=== PATIENT | female | born 1990 | race Caucasian/White ===

== ENCOUNTER 2017-07-13 09:00 | Inpatient (IN) | payer OTHER ==
[~2017-07-13] VITALS: Ht 157.5 cm; Wt 102.0 kg
[~2017-07-13 09:00] MED LIST: IBUP-1542 PO
[2017-07-13] MEDS ORDERED: LACTATED RINGER'S 1,000 ML IV PRN ×2 (09:50→10:30)
[2017-07-13] MEDS ORDERED: PNV11TAB PO (10:14)
[2017-07-13 10:15] VITALS: BP 118/57; PULSE 71; RESP 18; Ht 157.5 cm; Wt 102.0 kg
[2017-07-13] MEDS ORDERED: CARBOPROST 250 MCG INJ IM PRN ×2 (10:30→11:00)
[2017-07-13] MEDS ORDERED: MISOPROSTOL 200 MCG TAB PR PRN ×2 (10:30→11:00)
[2017-07-13] MEDS ORDERED: METHYLERGONOVINE 0.2 MG INJ IM PRN ×2 (10:30→11:00)
[2017-07-13] MEDS ORDERED: LIDOCAINE 1% (MPF) 30 ML INJ INJ PRN ×2 (10:30→11:00)
[2017-07-13] MEDS ORDERED: OXYTOCIN 30 UNITS/LR 500 ML IV PRN ×2 (10:30→11:00)
[2017-07-13] MEDS ORDERED: OXYTOCIN 30 UNITS/LR 500 ML IV SCH ×4 (10:30→11:00)
[2017-07-13] MEDS ORDERED: IBUPROFEN 600 MG TAB PO PRN ×2 (10:30→11:00)
[2017-07-13] MEDS ORDERED: BUTORPHANOL 2 MG INJ IV PRN ×2 (11:00)
[2017-07-13] MEDS ORDERED: DINOPROSTONE 10 MG VAG SUPP VAG ONE (11:00)
[2017-07-13] MEDS ORDERED: LACTATED RINGER'S 1,000 ML IV SCH (11:00)
[2017-07-13] MEDS: LACTATED RINGER'S 1,000 ML IV SCH ×2 (11:19→20:03)
[2017-07-13 11:28] LABS: BASOPHILS % 0.1 % (0.0-2.0); EOSINOPHILS % 0.6 % (0.0-7.0); HEMATOCRIT 29.8 % (37.0-47.0); HEMOGLOBIN 9.9 g/dl (12.0-16.0); LYMPHOCYTES # 1.8 10^3/ul (0.8-2.9); LYMPHOCYTES % 27.4 % (15.0-51.0); MEAN CORPUSCULAR HEMOGLOBIN 28.3 pg (29.0-33.0); MEAN CORPUSCULAR HGB CONC 33.2 g/dl (32.0-37.0); MEAN CORPUSCULAR VOLUME 85.1 fl (82.0-101.0); MEAN PLATELET VOLUME 10.6 fl (7.4-10.4); MONOCYTE # 0.5 10^3/ul (0.3-0.9); MONOCYTES % 7.5 % (0.0-11.0); NEUTROPHIL # 4.3 10^3/ul (1.6-7.5); NEUTROPHILS % 64.1 % (39.0-77.0); PLATELET COUNT 222 10^3/UL (140-415); RED CELL DISTRIBUTION WIDTH 13.3 % (11.5-14.5); WHITE BLOOD COUNT 6.7 10^3/ul (4.8-10.8)
[2017-07-13 11:49] LABS: INR 0.95; PROTIME 12.7 Sec (12.2-14.2)
[2017-07-13 11:50] LABS: PARTIAL THROMBOPLASTIN TIME 30.6 Sec (25.0-35.0)
--- NOTE | 2017-07-13 11:53 | RADRPT ---
PROCEDURE: US OB. CLINICAL INDICATION: Size and dates , labor pain TECHNIQUE: Multiple sonographic images of the pelvis and gravid uterus were obtained. The images were reviewed on a PACS workstation. COMPARISON: No prior studies are available for comparison. FINDINGS: There is a single viable intrauterine gestation. Cardiac activity is present with 150 beats per min richard. There is a vertex presentation. The placenta is anterior. There is no evidence for an abruption or placenta previa. Measurements were made in order to determine age. The results are as follows: BPD =9.2 cm HC =33.7 cm AC =37.5 cm FL =7.2 cm Estimated gestational age of approximately 38 weeks and 4 days based on ultrasound measurements. Clinical age: 39 weeks and 6 days. The estimated date of delivery is 07/23/2017, based on ultrasound measurements. The EFW = 3845 g, 71%, based on LMP age. RPTAT: AA IMPRESSION: Single viable intrauterine gestation of approximately 38 weeks and 4 days based on ultrasound measu rements. .Jorge Alberto Luna MD, MD Date Time Electronically viewed and signed by .Jorge Alberto Luna MD, on 07/13/2017 11:53 .S/
--- NOTE | 2017-07-13 16:01 | HP ---
Date/Time of Note Date/Time of Note DATE: 07/13/17 TIME: 15:53 OB - History Hx of Present Free Text/Dictation admitted for elecive induction of the labor Last Menstrual Period: Oct 07, 2015 Estimated Due Date: Jul 14, 2017 : 4 Para: 3 Care: Good Care Ultrasounds: Normal mid trimester US Obstetrical Complications: None Medical Complications: None Past Family/Social History * Past Medical, Surgical, Family and Obstetric Histories reviewed from chart. Blood Type: O+ Rubella: immune RPR/VDRL: Negative GBS Status: Negative HBsAG: Negative OB Admission Exam Vital Signs Vital Signs Vital Signs Date Time Temp Pulse Resp B/P Pulse Ox O2 Delivery O2 Flow Rate FiO2 07/13/17 10:15 98.0 71 18 118/57 Room Air Physical Exam HEENT: WNL Heart: Rhythm Normal Lungs: Clear, Equal Abdomen: WNL Extremities: Normal Reflexes: Normal Cervical Dilatation: None Effacement: 0% Station: -3 Membranes: Intact Heart Rate: 130's Accelerations: Accelerations Present Decelerations: No Decelerations Varibility: Marked Contractions on Admission: None Last 72 hours Lab Results CBC & BMP 07/13/17 11:10 OB Assessment/Plan Reason for admission: induction of labor Other Assessment: term gesation Induction Method: per Misoprostol Protocol AYAH PAYAN MD Jul 13, 2017 16:01
[2017-07-13] MEDS ORDERED: MINERAL OIL LIGHT 10 ML VIAL TOP PRN (23:30)
[2017-07-14 00:06] LABS: BARBITURATES Negative (NEGATIVE); BENZODIAZEPINES Negative (NEGATIVE); CANNABINOIDS Negative (NEGATIVE); COCAINE Negative (NEGATIVE); OPIATES Negative (NEGATIVE)
[2017-07-14] MEDS: BUTORPHANOL 2 MG INJ IV PRN ×4 (02:48→11:03)
[2017-07-14] MEDS: LACTATED RINGER'S 1,000 ML IV SCH ×2 (03:02→09:03)
[2017-07-14] MEDS ORDERED: MINERAL OIL LIGHT 10 ML VIAL TOP PRN (09:00)
[2017-07-14] MEDS ORDERED: FENTAnyl 2MCG/ML-ROPIV 0.2% 100 ML ONE (11:10)
[2017-07-14] MEDS ORDERED: FENTAnyl 2MCG/ML-ROPIV 0.2% 100 ML BAG EPI SCH (11:30)
[2017-07-14] MEDS ORDERED: NALOXONE (0.4 MG/ML) INJ IV PRN (11:30)
--- NOTE | 2017-07-14 12:25 | LDN ---
Date/Time of Note Date/Time of Note DATE: 07/14/17 TIME: 12:24 Delivery Summary Normal spontaneous vaginal delivery of a viable over intact perineum Weeks of Gestation 40 weeks Placenta Delivered: Spontaneously, Intact & Complete Meconium: none Episiotomy: No Perineal laceration: 0 Anesthesia type: Epidural Estimated blood loss: 300 Sponge & Needle done & correct: Yes All needle counts correct: Yes Any foreign bodies felt in the: No Problems: Infant Delivery Information Sex Infant Sex: male Apgars 1 Minute: 9 5 Minute: 9 Suctioning Nose & mouth suctioned at briseida: Yes Delee suction performed: No Umbilical Cord Umbilical cord with: 3 Vessels Cord presentations: nuchal cord Nuchal cord present X: 1 Cord Blood was obtained: Yes Mother & Baby Disposition Disposition Mom & Baby to Maternity; Good: Yes (Mother and baby were recovered in good condition) Mom transferred to: Other (Maternity) Baby to NICU: No AYAH PAYAN MD Jul 14, 2017 12:25
[2017-07-14] MEDS ORDERED: ONDANSETRON 4 MG INJ ONE (13:27)
[2017-07-14] MEDS ORDERED: ONDANSETRON 4 MG INJ IV STA (13:28)
[2017-07-14 15:00] VITALS: BP 114/61; PULSE 52; RESP 18
[2017-07-14] MEDS ORDERED: DIBUCAINE 1% 30 GM OINT PR PRN (15:30)
[2017-07-14] MEDS ORDERED: ZOLPIDEM 5 MG TAB PO PRN (15:30)
[2017-07-14] MEDS ORDERED: OXYTOCIN 30 UNITS/LR 500 ML IV PRN (15:30)
[2017-07-14] MEDS ORDERED: MISOPROSTOL 200 MCG TAB PR PRN (15:30)
[2017-07-14] MEDS ORDERED: LANOLIN 7 GM TUBE TOP PRN (15:30)
[2017-07-14] MEDS ORDERED: BENZOCAINE 20% 56 ML SPRAY TOP PRN (15:30)
[2017-07-14] MEDS ORDERED: WITCH HAZEL/GLYCERIN PAD PR PRN (15:30)
[2017-07-14] MEDS ORDERED: HYDROCODONE/APAP (5/325) TAB PO PRN ×2 (15:30)
[2017-07-14] MEDS ORDERED: METHYLERGONOVINE 0.2 MG INJ IM PRN (15:30)
[2017-07-14] MEDS ORDERED: CARBOPROST 250 MCG INJ IM PRN (15:30)
[2017-07-14] MEDS: LACTATED RINGER'S 1,000 ML IV* SCH ×2 (16:49→23:09)
[2017-07-14] MEDS: IBUPROFEN 600 MG TAB PO SCH ×2 (17:45→23:50)
[2017-07-14] MEDS: CEPHALEXIN 500 MG CAP PO SCH ×2 (17:45→23:50)
[2017-07-14 20:00] VITALS: BP 109/71; PULSE 61
[2017-07-14] MEDS: SENNA/DOCUSATE NA (8.6MG/50MG) TAB PO SCH (20:57)
[2017-07-14] MEDS: MAGNESIUM HYDROXIDE 30ML CUP PO SCH (20:58)
[2017-07-15] VITALS: BP 106/57; PULSE 57; RESP 18
[2017-07-15 04:00] VITALS: BP 108/56; PULSE 53; RESP 18
[2017-07-15] MEDS: CEPHALEXIN 500 MG CAP PO SCH ×3 (05:32→17:40)
[2017-07-15] MEDS: IBUPROFEN 600 MG TAB PO SCH ×3 (05:33→17:40)
[2017-07-15] MEDS: MAGNESIUM HYDROXIDE 30ML CUP PO SCH ×2 (09:14→21:22)
[2017-07-15] MEDS: SENNA/DOCUSATE NA (8.6MG/50MG) TAB PO SCH ×2 (09:14→21:22)
[2017-07-15 11:33] LABS: BASOPHILS % 0.3 % (0.0-2.0); EOSINOPHILS # 0.1 10^3/ul (0.0-0.5); EOSINOPHILS % 0.9 % (0.0-7.0); LYMPHOCYTES # 1.7 10^3/ul (0.8-2.9); LYMPHOCYTES % 25.1 % (15.0-51.0); MEAN CORPUSCULAR HEMOGLOBIN 28.2 pg (29.0-33.0); MEAN CORPUSCULAR HGB CONC 32.3 g/dl (32.0-37.0); MEAN CORPUSCULAR VOLUME 87.3 fl (82.0-101.0); MEAN PLATELET VOLUME 10.9 fl (7.4-10.4); MONOCYTE # 0.4 10^3/ul (0.3-0.9); MONOCYTES % 5.5 % (0.0-11.0); NEUTROPHIL # 4.6 10^3/ul (1.6-7.5); NEUTROPHILS % 67.8 % (39.0-77.0); PLATELET COUNT 217 10^3/UL (140-415); RED BLOOD COUNT 3.55 10^6/ul (4.20-5.40); RED CELL DISTRIBUTION WIDTH 13.6 % (11.5-14.5); WHITE BLOOD COUNT 6.8 10^3/ul (4.8-10.8)
[2017-07-15 16:00] VITALS: BP 111/55; PULSE 65; RESP 18
--- NOTE | 2017-07-15 17:56 | DS ---
Date/Time of Note Date/Time of Note home next day DATE: 07/15/17 TIME: 17:55 Obstetrical Discharge Record Final Diagnosis Final Diagnosis: Term delivered Other Final Diagnosis S/P vaginal delivery Complications Augmentation: No Induction: Yes Condition on Discharge Physical Assessment Last Vitals: see nurses notes Voiding: Yes Bowel Movement: Yes Breast: Soft, non-tender, Filling Fundus: Firm Abdomen and Incision: soft BV + Episiotomy: NA Calf Tenderness: No Patient Condition: Good AYAH PAYAN MD Jul 15, 2017 17:56
--- NOTE | 2017-07-15 18:00 | PD.PPDC ---
CHARGE ENTRY Discharge Instruction Provider Information Physician Information 27-year-old female had vaginal delivery Diagnosis Final Diagnosis: Status post vaginal delivery Condition Patient Condition: Good Diet Diet: Resume Regular Diet Activity/Restrictions Activity: Normal Activity May Shower Restrictions: Nothing in the Vagina Return to Work or School: Aug 31, 2017 Follow-up Follow-up with Physician: 4, Week/Weeks (In clinic) Return to clinic for OB Instructions: Breast Tenderness Depression Comment: Pelvic rest 6 weeks AYAH PAYAN MD Jul 15, 2017 18:00
[2017-07-15] MEDS ORDERED: IBUP-1542 PO (18:01)
[2017-07-15 20:00] VITALS: BP 114/77; PULSE 58; RESP 18
[2017-07-16] MEDS: CEPHALEXIN 500 MG CAP PO SCH ×4 (00:21→17:25)
[2017-07-16] MEDS: IBUPROFEN 600 MG TAB PO SCH ×4 (00:21→17:25)
[2017-07-16 04:00] VITALS: BP 98/55; PULSE 55; RESP 19
[2017-07-16 08:00] VITALS: BP 116/61; PULSE 55; RESP 18
[2017-07-16] MEDS ORDERED: DIPHTH/TET/ACEL PERTUSS (ADULT) 0.5 ML VIAL IM* ONE (09:00)
[2017-07-16] MEDS ORDERED: VARICELLA VACCINE LIVE/PF 1,350 UNIT/0.5 ML ML SC* ONE (09:00)
[2017-07-16] MEDS ORDERED: MEASLES,MUMPS,RUBELLA VACCINE INJ SC* ONE (09:00)
[2017-07-16] MEDS: MAGNESIUM HYDROXIDE 30ML CUP PO SCH (09:43)
[2017-07-16] MEDS: SENNA/DOCUSATE NA (8.6MG/50MG) TAB PO SCH (09:44)
[2017-07-16 16:00] VITALS: BP 105/61; PULSE 61; RESP 18
== END 2017-07-16 18:43 | disposition home or self-care (01) | DRG 775 ==
LOC: L-D 09:46 → PP1 07-14 14:55
PROVIDERS: ADMIT Obstetrics & Gynecology; ATTEND Obstetrics & Gynecology
PROC: 10E0XZZ Delivery of Products of Conception, External Approach (ICD-10-PCS; principal; 2017-07-14)
PROC: 3E0P3VZ Introduction of Hormone into Female Reproductive, Percutaneous Approach (ICD-10-PCS; 2017-07-14)
DX: O48.0 Post-term pregnancy (principal); Z37.0 Single live birth; Z3A.40 40 weeks gestation of pregnancy
CPT/HCPCS: 62319; 76816; 80307; 85025; 85610; 85730; 86592; 86900; 86901; 87340; 90715; 90716; J0595; J2405; J2590; J3010; J7120